=== PATIENT | male | born 1955 | race Caucasian/White ===

== ENCOUNTER 2017-12-29 11:31 | Emergency (ER) | payer OTHER ==
[~2017-12-29] VITALS: Ht 162.6 cm; Wt 60.8 kg
[~2017-12-29 11:31] MED LIST: ALBIPROI; ALBIPROI INH; ALBU90OI INH; ALBU90OI61 INH; AZIT250 PO; CYCL10 PO; CYCLOBENZAPRINE PO; Cyclobenzaprine5 MG PO; HYDACE5 PO; METPRE4DP PO; Monodox100 MG PO; Mucinex600 MG PO; NAPR550 PO; Naprosyn500 MG PO; PRED20 PO; Prednisone20 MG PO; TRAM50 PO; Ultram50 MG PO; Zithromax250 MG PO
[2017-12-29 13:07] LABS: BASOPHILS ABSOLUTE AUTO 0.04 K/mm3 (0.00-0.23); BASOPHILS PERCENT AUTO 1 % (0-2); EOSINOPHILS ABSOLUTE AUTO 0.03 K/mm3 (0.00-0.68); EOSINOPHILS PERCENT AUTO 0 % (0-6); Hematocrit 39.5 % (37.0-53.0); Hemoglobin 13.4 g/dL (13.5-17.5); IMMATURE GRAN ABSOLUTE AUTO 0.03 K/mm3 (0.00-0.10); IMMATURE GRAN PERCENT AUTO 0 % (0-1); LYMPHOCYTES ABSOLUTE AUTO 1.55 K/mm3 (0.84-5.20); LYMPHOCYTES PERCENT AUTO 18 % (21-46); MONOCYTES ABSOLUTE AUTO 1.12 K/mm3 (0.16-1.47); MONOCYTES PERCENT AUTO 13 % (4-13); Mean Corpuscular HGB 29.7 pg (26.0-34.0); Mean Corpuscular HGB Conc 33.9 g/dL (31.5-36.5); Mean Corpuscular Volume 88 fL (80-100); Mean Platelet Volume 8.8 fL (9.1-12.4); NEUTROPHILS ABSOLUTE AUTO 5.74 K/mm3 (1.96-9.15); NEUTROPHILS PERCENT AUTO 67 % (41-73); Platelet Count 391 K/mm3 (150-400); RDW Coefficient Variation 14.1 % (11.7-14.2); RDW Standard Deviation 45.3 fL (35.1-46.3); Red Blood Cell Count 4.51 M/mm3 (4.30-5.90); White Blood Cell Count 8.51 K/mm3 (4.00-11.30)
[2017-12-29 13:24] LABS: Alanine Aminotransfer (ALT/SGP 23 U/L (12-78); Albumin, Blood 3.8 g/dL (3.4-5.0); Alk Phos 56 U/L (50-136); Anion Gap 8 mmol/L (6-16); Aspartate Aminotrans (AST/SGOT 25 U/L (12-37); Bilirubin, Total 0.4 mg/dL (0.1-1.0); Blood Urea Nitrogen 8 mg/dL (8-24); CO2, Blood 26 mmol/L (21-32); Calcium, Blood 8.9 mg/dL (8.5-10.1); Chloride, Blood 95 mmol/L (98-108); Creatinine, Blood 0.62 mg/dL (0.60-1.20); Globulin, Blood 3.7 g/dL (2.2-4.0); Glomerular Filtration Rate >60 (60-); Glucose, Blood 103 mg/dL (70-99); Potassium, Blood 4.5 mmol/L (3.5-5.5); Sodium, Blood 129 mmol/L (136-145); Total Protein, Blood 7.5 g/dL (6.4-8.2); Troponin I <0.015 ng/mL (0.000-0.040)
[2017-12-29] MEDS ORDERED: Zofran Odt4 MG PO (17:56)
== END 2017-12-29 18:22 | disposition home or self-care (01) ==
LOC: ER 11:31
PROVIDERS: Emergency Medicine
DX: A08.4 Viral intestinal infection, unspecified (principal); J44.9 Chronic obstructive pulmonary disease, unspecified; Z79.51 Long term (current) use of inhaled steroids; Z87.891 Personal history of nicotine dependence
CPT/HCPCS: 36415; 71046; 80053; 83690; 84484; 85025; 93005; 93010; 99283

== ENCOUNTER 2018-05-02 10:08 | Emergency (ER) | payer OTHER ==
[~2018-05-02] VITALS: Ht 167.6 cm; Wt 65.3 kg
[~2018-05-02 10:08] MED LIST changes: +IBUP600 PO; +Zofran Odt4 MG PO
[2018-05-02] MEDS ORDERED: VALA500 PO (10:37)
[2018-05-02] MEDS ORDERED: Ultram50 MG PO (10:37)
== END 2018-05-02 10:40 | disposition home or self-care (01) ==
LOC: ER 10:08
DX: B02.9 Zoster without complications (principal); J44.9 Chronic obstructive pulmonary disease, unspecified; I10 Essential (primary) hypertension; Z79.51 Long term (current) use of inhaled steroids; Z87.891 Personal history of nicotine dependence
CPT/HCPCS: 99282

== ENCOUNTER → 2018-10-22 | Outpatient (CLI) | payer OTHER ==
[~2018-10-22] MED LIST changes: +VALA500 PO
== END | disposition home or self-care (01) ==
LOC: PLD 07:36 → LAB SHORT 07:36
DX: L60.2 Onychogryphosis (principal); B35.1 Tinea unguium
CPT/HCPCS: 88305; 88312

== ENCOUNTER 2018-11-15 06:00 | Day surgery (SDC) | payer OTHER ==
[~2018-11-15] VITALS: Ht 160 cm; Wt 61.0 kg
[~2018-11-15 06:00] MED LIST changes: +BUDE10.22 INH; +LISI20 PO; +NAPR500EC PO; +OMEPRAZOLE20 MG PO; +Singulair10 MG PO; +Vitamin D2000 UNIT PO; +Zanaflex4 M1 PO
--- NOTE | 2018-11-15 06:34 | NUR ---
History, Chart, Medications and Allergies reviewed before start of procedure. Patient States Post-Procedure ride home has been arranged. Patient confirms NPO status and agrees with scheduled surgery.
--- NOTE | 2018-11-15 09:42 | NUR ---
Patient up to Ambulate independently. Gait steady. Dressing to procedure site clean, dry, intact with no visible drainage, swelling, erythema or bruising noted. Patient States Post-Procedure ride home has been arranged. Discharged via wheelchair to private car for ride home.
== END 2018-11-15 09:38 | disposition home or self-care (01) ==
LOC: ORSCMMR 06:00 → ORD 07:30 → ORSCMMR 09:38
PROVIDERS: Surgery
PROC: 0YU60JZ Supplement Left Inguinal Region with Synthetic Substitute, Open Approach (ICD-10-PCS; principal; 2018-11-15 07:30)
DX: K40.90 Unilateral inguinal hernia, without obstruction or gangrene, not specified as recurrent (principal); I10 Essential (primary) hypertension; J44.9 Chronic obstructive pulmonary disease, unspecified; Z87.891 Personal history of nicotine dependence; Z79.899 Other long term (current) drug therapy
CPT/HCPCS: C1781; J0690; J1100; J2250; J2405; J2704; J3010; J7120

== ENCOUNTER → 2019-03-13 | Outpatient (CLI) | payer OTHER | END | disposition home or self-care (01) | LOC: LAB SHORT 07:31 → PLD 07:31 | DX: D48.5 Neoplasm of uncertain behavior of skin (principal) | CPT/HCPCS: 88305 ==

== ENCOUNTER → 2019-03-27 | Outpatient (CLI) | payer OTHER | END | disposition home or self-care (01) | LOC: LAB SHORT 08:50 → PLD 08:50 | DX: D22.5 Melanocytic nevi of trunk (principal) | CPT/HCPCS: 88305 ==

== ENCOUNTER → 2019-04-05 | Outpatient (CLI) | payer OTHER ==
[2019-04-05 16:06] LABS: Adenovirus F 40/41 Not Detected (NOT DETECT); Astrovirus Not Detected (NOT DETECT); Campylobacter Sp Not Detected (NOT DETECT); Cryptosporidium Not Detected (NOT DETECT); Cyclospora Cayetanensis Not Detected (NOT DETECT); E. Coli O157 Not Detected (NOT DETECT); Entamoeba Histolytica Not Detected (NOT DETECT); Enteroaggregative E. coli-EAEC Not Detected (NOT DETECT); Enteropathogenic E. coli-EPEC Detected (NOT DETECT); Enterotoxigenic E. coli-ETEC Not Detected (NOT DETECT); Giardia Lamblia Not Detected (NOT DETECT); Norovirus GI/GII Not Detected (NOT DETECT); Plesiomonas Shigelloides Not Detected (NOT DETECT); Salmonella Sp Not Detected (NOT DETECT); Shiga Toxin-prod E. coli-STEC Not Detected (NOT DETECT); Shigella/Enteroin E. coli-EIEC Not Detected (NOT DETECT); Vibrio Cholerae Not Detected (NOT DETECT); Vibrio Sp Not Detected (NOT DETECT); Yersinia Enterocolitica Not Detected (NOT DETECT)
[2019-04-05 16:07] LABS: Rotavirus A Not Detected (NOT DETECT); Sapovirus Not Detected (NOT DETECT)
== END | disposition home or self-care (01) ==
LOC: LAB EV 02:15
PROVIDERS: Internal Medicine Gastroenterology
DX: R19.7 Diarrhea, unspecified (principal)
CPT/HCPCS: 0097U

== ENCOUNTER 2019-10-02 07:51 | Day surgery (SDC) | payer OTHER ==
[~2019-10-02] VITALS: Ht 160 cm; Wt 60.7 kg
--- NOTE | 2019-10-02 19:49 | NUR ---
ARRIVAL REPORT RECEIVED FROM MARIE KNOX IN PACU. PT TRANSFERED TO UNIT AT APPROX 1935. PT TRANSFERED SELF TO BED WITH SBY ASSIST. REPORTS SOME SHORTNESS OF BREATH WITH TRANSFER PT REPORTS NORMAL WITH HX OF COPD. DRESSING ON POSTERIOR R SHOULDER CDI, TAPE WITH GAUZE UNDERNEATH. R ARMPIT DRESSING CDI CLEAR TAPE WITH GAUZE UNDERNEATH. REPORTS SOME PAIN WITH MOVEMENT IN RIGHT SHOULDER. PT CURRENTLY SITTING UP IN BED. ASKING FOR WATER AND FOOD CURRENTLY. ORIENTED TO ROOM WILL MAKE SURE NEEDS ARE MET. PT AAOX4
--- NOTE | 2019-10-03 04:20 | NUR ---
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 AA0X4, VSS. PT HERE FOR EXTENDED RECOVERY. PT VOIDING AND TOLERATING PO WELL. HAS DENIED PAIN SINCE RETURNING AND IS RESTING IN BED. PT IND IN ROOM. PLAN TO GO HOME TODAY
--- NOTE | 2019-10-03 08:53 | NUR ---
10/03/19 0853 Gail Ventura VERIFICATIONS: EDIT CHART.
[2019-10-03] MEDS ORDERED: HYDROCODONE-AC1 EAC1 PO (09:26)
--- NOTE | 2019-10-03 10:46 | NUR ---
DISCHARGE: PACKET PRINTED AND PT EDUCATED. PT GIVEN SCRIPT FOR NARCO AND GUAZE /TAPE FOR DRESSING CHANGE. LEFT UNIT VIA WHEELCHAIR AT ABOUT 1005 WITH VIPIN ARORA AND FRIEND.
== END 2019-10-03 10:19 | disposition home or self-care (01) ==
LOC: NM 07:51 → ORSCMMR 07:51 → NM 10:00 → SURS 19:46 → NM 10-03 10:19
PROVIDERS: Surgery
PROC: 0JB70ZZ Excision of Back Subcutaneous Tissue and Fascia, Open Approach (ICD-10-PCS; principal; 2019-10-02 12:30)
PROC: 07B50ZX Excision of Right Axillary Lymphatic, Open Approach, Diagnostic (ICD-10-PCS; principal; 2019-10-02 12:30)
PROC: 0JX70ZZ Transfer Back Subcutaneous Tissue and Fascia, Open Approach (ICD-10-PCS; principal; 2019-10-02 12:30)
DX: C43.59 Malignant melanoma of other part of trunk (principal); C77.3 Secondary and unspecified malignant neoplasm of axilla and upper limb lymph nodes; E78.00 Pure hypercholesterolemia, unspecified; J44.9 Chronic obstructive pulmonary disease, unspecified; I10 Essential (primary) hypertension; Z79.899 Other long term (current) drug therapy
CPT/HCPCS: 38792; 88305; 88307; 88342; A9520; J0690; J1100; J2405; J2704; J3010; J7120; Q9968

== ENCOUNTER → 2020-04-02 | Outpatient (CLI) | payer OTHER ==
[~2020-04-02] MED LIST changes: -BUDE10.22 INH; +Cetirizine HCl10 MG PO; +DEXA4 PO; +HYDROCODONE-AC1 EAC1 PO; +LEVE500 PO; +LEVETIRACETAM500 M3 PO; -LISI20 PO; +NAPR500 PO; -NAPR500EC PO; +OMEP20ER PO; +Prinivil10 MG PO; +SYMBICORT 80-10.2 GM INH
[2020-04-02 15:20] LABS: Performing Lab SYMBIODX; Test Name EMBEDDED TISSUE
== END ==
LOC: LAB SHORT 14:35 → LAB 14:35
PROVIDERS: Internal Medicine Hematology & Oncology
DX: C43.59 Malignant melanoma of other part of trunk (principal)
CPT/HCPCS: 81210

== ENCOUNTER 2020-04-09 13:55 | Inpatient (IN) | payer OTHER ==
[~2020-04-09] VITALS: Ht 162.6 cm; Wt 52.6 kg
[~2020-04-09 13:55] MED LIST changes: -Cetirizine HCl10 MG PO; -DEXA4 PO; -LEVETIRACETAM500 M3 PO; -NAPR500 PO; -OMEP20ER PO; -Prinivil10 MG PO; -SYMBICORT 80-10.2 GM INH; -Singulair10 MG PO
[2020-04-09 14:29] LABS: BASOPHILS ABSOLUTE AUTO 0.04 K/mm3 (0.00-0.23); BASOPHILS PERCENT AUTO 0 % (0-2); EOSINOPHILS ABSOLUTE AUTO 0.01 K/mm3 (0.00-0.68); EOSINOPHILS PERCENT AUTO 0 % (0-6); Hematocrit 46.1 % (37.0-53.0); Hemoglobin 15.3 g/dL (13.5-17.5); IMMATURE GRAN ABSOLUTE AUTO 0.12 K/mm3 (0.00-0.10); IMMATURE GRAN PERCENT AUTO 1 % (0-1); LYMPHOCYTES ABSOLUTE AUTO 1.53 K/mm3 (0.84-5.20); LYMPHOCYTES PERCENT AUTO 7 % (21-46); MONOCYTES ABSOLUTE AUTO 2.61 K/mm3 (0.16-1.47); MONOCYTES PERCENT AUTO 12 % (4-13); Mean Corpuscular HGB 30.2 pg (26.0-34.0); Mean Corpuscular HGB Conc 33.2 g/dL (31.5-36.5); Mean Corpuscular Volume 91 fL (80-100); Mean Platelet Volume 9.6 fL (9.1-12.4); NEUTROPHILS ABSOLUTE AUTO 16.98 K/mm3 (1.96-9.15); NEUTROPHILS PERCENT AUTO 80 % (41-73); Platelet Count 339 K/mm3 (150-400); RDW Coefficient Variation 14.2 % (11.7-14.2); RDW Standard Deviation 47.7 fL (35.1-46.3); Red Blood Cell Count 5.06 M/mm3 (4.30-5.90); White Blood Cell Count 21.29 K/mm3 (4.00-11.30)
[2020-04-09 14:48] LABS: Alanine Aminotransfer (ALT/SGP 17 U/L (12-78); Albumin, Blood 3.9 g/dL (3.4-5.0); Albumin/Globulin Ratio 0.9 (0.8-1.8); Alk Phos 77 U/L (50-136); Anion Gap 8 mmol/L (6-16); Aspartate Aminotrans (AST/SGOT 10 U/L (12-37); Bilirubin, Total 0.9 mg/dL (0.1-1.0); Blood Urea Nitrogen 28 mg/dL (8-24); Bun/Creatinine Ratio 31.7 (12.0-20.0); CO2, Blood 25 mmol/L (21-32); Calcium, Blood 9.6 mg/dL (8.5-10.1); Chloride, Blood 100 mmol/L (98-108); Creatinine, Blood 0.88 mg/dL (0.60-1.20); Globulin, Blood 4.5 g/dL (2.2-4.0); Glomerular Filtration Rate >60 (60-); Glucose, Blood 120 mg/dL (70-99); Potassium, Blood 4.4 mmol/L (3.5-5.5); Sodium, Blood 133 mmol/L (136-145); Total Protein, Blood 8.4 g/dL (6.4-8.2)
[2020-04-09] MEDS ORDERED: Cetirizine HCl10 MG PO (15:57)
[2020-04-09] MEDS ORDERED: DEXA4 PO (15:57)
[2020-04-09] MEDS ORDERED: NAPR500 PO (15:58)
[2020-04-09] MEDS ORDERED: Prinivil10 MG PO (15:58)
[2020-04-09] MEDS ORDERED: LEVETIRACETAM500 M3 PO (15:58)
[2020-04-09] MEDS ORDERED: Singulair10 MG PO (15:59)
[2020-04-09] MEDS ORDERED: OMEP20ER PO (15:59)
[2020-04-09] MEDS ORDERED: ALBU90OI INH (16:00)
[2020-04-09] MEDS ORDERED: SYMBICORT 80-10.2 GM INH (16:01)
[2020-04-09 20:30] LABS: Hematocrit 43.9 % (37.0-53.0); Hemoglobin 14.9 g/dL (13.5-17.5)
[2020-04-09 20:48] LABS: International Normalized Ratio 1.07; Prothrombin Time Results 11.4 Sec (9.7-11.5)
--- NOTE | 2020-04-09 20:57 | NUR ---
2049 PT ADMITTED TO ROOM 309 PER WHEELCHAIR FROM ER; REPORT RECEIVED FROM MARIE SANTIAGO, DENIES PAIN OR NAUSEA; PTS BILATERAL FEET NOTED TO HAVE LONG TOE NAILS NOTED; ALERT AND ORIENTED X 4.
[2020-04-10 02:00] LABS: Hematocrit 43.8 % (37.0-53.0); Hemoglobin 14.8 g/dL (13.5-17.5)
--- NOTE | 2020-04-10 05:23 | NUR ---
SHIFT SUMMARY: 64 Y/O SLENDER MALE RESTED COMFORTABLY ALL SHIFT; NO BLOODY STOOLS; HG 14.8 AT 0140; DENIES PAIN OR NAUSEA; ALERT AND ORIENTED X 4; CIWA 1; BED LOW POSITION WITH CALL LIGHT AT SIDE; NPO.
[2020-04-10 07:58] LABS: BASOPHILS ABSOLUTE AUTO 0.04 K/mm3 (0.00-0.23); BASOPHILS PERCENT AUTO 0 % (0-2); EOSINOPHILS ABSOLUTE AUTO 0.03 K/mm3 (0.00-0.68); EOSINOPHILS PERCENT AUTO 0 % (0-6); Hematocrit 43.3 % (37.0-53.0); Hemoglobin 14.3 g/dL (13.5-17.5); IMMATURE GRAN ABSOLUTE AUTO 0.16 K/mm3 (0.00-0.10); IMMATURE GRAN PERCENT AUTO 1 % (0-1); LYMPHOCYTES ABSOLUTE AUTO 1.72 K/mm3 (0.84-5.20); LYMPHOCYTES PERCENT AUTO 7 % (21-46); MONOCYTES ABSOLUTE AUTO 2.27 K/mm3 (0.16-1.47); MONOCYTES PERCENT AUTO 10 % (4-13); Mean Corpuscular HGB 30.4 pg (26.0-34.0); Mean Corpuscular Volume 92 fL (80-100); NEUTROPHILS ABSOLUTE AUTO 19.08 K/mm3 (1.96-9.15); NEUTROPHILS PERCENT AUTO 82 % (41-73); Platelet Count 318 K/mm3 (150-400); RDW Coefficient Variation 13.9 % (11.7-14.2); RDW Standard Deviation 47.4 fL (35.1-46.3)
[2020-04-10 08:17] LABS: Alanine Aminotransfer (ALT/SGP 12 U/L (12-78); Albumin, Blood 3.2 g/dL (3.4-5.0); Albumin/Globulin Ratio 0.8 (0.8-1.8); Alk Phos 67 U/L (50-136); Anion Gap 7 mmol/L (6-16); Aspartate Aminotrans (AST/SGOT 11 U/L (12-37); Blood Urea Nitrogen 23 mg/dL (8-24); Bun/Creatinine Ratio 32.6 (12.0-20.0); CO2, Blood 25 mmol/L (21-32); Chloride, Blood 101 mmol/L (98-108); Creatinine, Blood 0.71 mg/dL (0.60-1.20); Globulin, Blood 4.1 g/dL (2.2-4.0); Glomerular Filtration Rate >60 (60-); Glucose, Blood 112 mg/dL (70-99); Potassium, Blood 4.4 mmol/L (3.5-5.5); Sodium, Blood 133 mmol/L (136-145); Total Protein, Blood 7.3 g/dL (6.4-8.2)
[2020-04-10 11:24] LABS: Campylobacter Sp Not Detected (NOT DETECT); E. Coli O157 Detected (NOT DETECT); Enteroaggregative E. coli-EAEC Not Detected (NOT DETECT); Enteropathogenic E. coli-EPEC Not Detected (NOT DETECT); Enterotoxigenic E. coli-ETEC Not Detected (NOT DETECT); Plesiomonas Shigelloides Not Detected (NOT DETECT); Salmonella Sp Not Detected (NOT DETECT); Shiga Toxin-prod E. coli-STEC Detected (NOT DETECT); Shigella/Enteroin E. coli-EIEC Not Detected (NOT DETECT); Vibrio Cholerae Not Detected (NOT DETECT); Vibrio Sp Not Detected (NOT DETECT); Yersinia Enterocolitica Not Detected (NOT DETECT)
[2020-04-10 11:25] LABS: Adenovirus F 40/41 Not Detected (NOT DETECT); Astrovirus Not Detected (NOT DETECT); Cryptosporidium Not Detected (NOT DETECT); Cyclospora Cayetanensis Not Detected (NOT DETECT); Entamoeba Histolytica Not Detected (NOT DETECT); Giardia Lamblia Not Detected (NOT DETECT); Norovirus GI/GII Not Detected (NOT DETECT); Rotavirus A Not Detected (NOT DETECT); Sapovirus Not Detected (NOT DETECT)
[2020-04-10 13:51] LABS: Hematocrit 44.5 % (37.0-53.0)
[2020-04-10 15:03] LABS: Stool Occult Bld Immuno 1 Positive (NEGATIVE)
--- NOTE | 2020-04-10 16:56 | NUR ---
PT IS A/OX4, PLEASANT AND COOPERATIVE, THE PT IS UP WITH MINIMAL ASSIST TO THE BATHROOM, THE PT TODAY HAD MUTIPLE LOOSE STOOLS BROWN IN COLOR, NO BLACK TARRY STOOLS OR ERA BLOOD NOTICED, PT WAS MEDICATED FOR ABD PAIN X1 SO FAR THIS SHIFT, THE PT APPEARS TO BE BREATHING EASILY AT THIS TIME, THE PT STARTED ON CLEARS THEN B.R.A.T.DIET FOR FOR DINNER AND HAS TOLERATED THE CLEARS SO FAR, FAMILY HAS BEEN IN TO SEE THE PT, CALL LIGHT IN REACH WILL CONTINUE TO MONITOR AND ASSESS FOR CHANGES
--- NOTE | 2020-04-10 22:25 | NUR ---
PT RESTING COMFORTABLY IN BED; AWAITING BED AT [facility] AT THIS TIME.
--- NOTE | 2020-04-11 04:00 | NUR ---
SHIFT SUMMARY: 64 Y/O SLENDER MALE RESTED COMFORTABLY ALL SHIFT; NO BLOODY STOOLS NOTED; PT WAITING ON BED YET FROM [facility]; DENIES PAIN OR NAUSEA; ALERT AND ORIENTED X 4; BED LOW POSITION WITH CALL LIGHT AT SIDE.
[2020-04-11 04:50] LABS: Hematocrit 39.2 % (37.0-53.0); Mean Corpuscular HGB 30.6 pg (26.0-34.0); Mean Corpuscular HGB Conc 33.2 g/dL (31.5-36.5); Mean Corpuscular Volume 92 fL (80-100); Mean Platelet Volume 10.6 fL (9.1-12.4); Platelet Count 295 K/mm3 (150-400); RDW Coefficient Variation 13.9 % (11.7-14.2); RDW Standard Deviation 47.2 fL (35.1-46.3); Red Blood Cell Count 4.25 M/mm3 (4.30-5.90); White Blood Cell Count 20.76 K/mm3 (4.00-11.30)
[2020-04-11 05:10] LABS: Albumin, Blood 2.8 g/dL (3.4-5.0); Anion Gap 6 mmol/L (6-16); Blood Urea Nitrogen 16 mg/dL (8-24); Bun/Creatinine Ratio 19.8 (12.0-20.0); CO2, Blood 25 mmol/L (21-32); Calcium, Blood 8.8 mg/dL (8.5-10.1); Chloride, Blood 101 mmol/L (98-108); Creatinine, Blood 0.81 mg/dL (0.60-1.20); Glomerular Filtration Rate >60 (60-); Glucose, Blood 105 mg/dL (70-99); Phosphorus, Blood 3.8 mg/dL (2.5-4.9); Sodium, Blood 132 mmol/L (136-145)
--- NOTE | 2020-04-11 11:51 | NUR ---
CALLED REPORT TO SMITA SALAZAR [facility] 1890.
--- NOTE | 2020-04-11 12:59 | NUR ---
PT OUT DOOR WITH BIN LARES AT 1300
--- NOTE | 2020-04-11 13:00 | NUR ---
TELE REMOVED. IV INTACT.
== END 2020-04-11 13:00 | disposition short-term general hospital (02) | DRG 871 ==
LOC: ER 13:55 → MEDS 20:24 → ENPENDDIS 04-11 09:12 → MEDS 04-11 13:00
PROVIDERS: Emergency Medicine; ADMIT Internal Medicine
DX: A41.51 Sepsis due to Escherichia coli [E. coli] (principal); G93.6 Cerebral edema; E87.1 Hypo-osmolality and hyponatremia; C79.31 Secondary malignant neoplasm of brain; E86.0 Dehydration; J44.9 Chronic obstructive pulmonary disease, unspecified; I10 Essential (primary) hypertension; B96.21 Shiga toxin-producing Escherichia coli [E. coli] [STEC] O157 as the cause of diseases classified elsewhere; Z87.891 Personal history of nicotine dependence; E78.00 Pure hypercholesterolemia, unspecified; G89.4 Chronic pain syndrome
CPT/HCPCS: 0097U; 36415; 74177; 80053; 80069; 82274; 83605; 85014; 85018; 85025; 85027; 85610; 85730; 86850; 86900; 86901; 93005; 93010; 94640; 94760; 96365; 96367; 97161; 97165; 99285-25; A9270-GY; J0744; J2543; J3010; J7030; Q9967; U0002

== ENCOUNTER 2020-09-15 20:20 | Emergency (ER) | payer OTHER ==
[~2020-09-15] VITALS: Ht 167.6 cm; Wt 77.1 kg
[~2020-09-15 20:20] MED LIST changes: +Cetirizine HCl10 MG PO; +DEXA4 PO; +LEVETIRACETAM500 M3 PO; +NAPR500 PO; +OMEP20ER PO; +Prinivil10 MG PO; +SYMBICORT 80-10.2 GM INH; +Singulair10 MG PO
[2020-09-15] MEDS ORDERED: ACET325 PO (20:41)
[2020-09-15] MEDS ORDERED: FLUTICASONE-SA1 EA10 INH (20:44)
[2020-09-15] MEDS ORDERED: FOLI1 PO (20:45)
[2020-09-15] MEDS ORDERED: MIRALAX17 GM PO (20:49)
[2020-09-15] MEDS ORDERED: TAMS.4ER PO (20:50)
[2020-09-15] MEDS ORDERED: SENNA LAXATIVE8.6 MG (20:50)
[2020-09-15] MEDS ORDERED: SYMBICORT 80-10.2 GM (20:50)
[2020-09-15] MEDS ORDERED: TRAM50 PO (20:51)
[2020-09-15] MEDS ORDERED: THERA-D2000 UNIT PO (20:52)
[2020-09-15 22:17] LABS: BASOPHILS ABSOLUTE AUTO 0.12 K/mm3 (0.00-0.23); BASOPHILS PERCENT AUTO 1 % (0-2); EOSINOPHILS ABSOLUTE AUTO 0.01 K/mm3 (0.00-0.68); EOSINOPHILS PERCENT AUTO 0 % (0-6); Hematocrit 41.5 % (37.0-53.0); Hemoglobin 13.5 g/dL (13.5-17.5); IMMATURE GRAN ABSOLUTE AUTO 0.18 K/mm3 (0.00-0.10); IMMATURE GRAN PERCENT AUTO 2 % (0-1); LYMPHOCYTES ABSOLUTE AUTO 2.97 K/mm3 (0.84-5.20); LYMPHOCYTES PERCENT AUTO 30 % (21-46); MONOCYTES ABSOLUTE AUTO 1.25 K/mm3 (0.16-1.47); MONOCYTES PERCENT AUTO 13 % (4-13); Mean Corpuscular HGB Conc 32.5 g/dL (31.5-36.5); Mean Corpuscular Volume 89 fL (80-100); Mean Platelet Volume 10.5 fL (9.1-12.4); NEUTROPHILS ABSOLUTE AUTO 5.49 K/mm3 (1.96-9.15); NEUTROPHILS PERCENT AUTO 55 % (41-73); Platelet Count 255 K/mm3 (150-400); RDW Coefficient Variation 16.8 % (11.7-14.2); RDW Standard Deviation 54.5 fL (35.1-46.3); Red Blood Cell Count 4.65 M/mm3 (4.30-5.90); White Blood Cell Count 10.02 K/mm3 (4.00-11.30)
[2020-09-15 22:27] LABS: Alanine Aminotransfer (ALT/SGP 22 U/L (12-78); Albumin, Blood 3.4 g/dL (3.4-5.0); Albumin/Globulin Ratio 0.7 (0.8-1.8); Alk Phos 156 U/L (50-136); Anion Gap 10 mmol/L (6-16); Aspartate Aminotrans (AST/SGOT 23 U/L (12-37); Bilirubin, Total 0.8 mg/dL (0.1-1.0); Blood Urea Nitrogen 16 mg/dL (8-24); Bun/Creatinine Ratio 22.7 (12.0-20.0); CO2, Blood 20 mmol/L (21-32); Calcium, Blood 9.3 mg/dL (8.5-10.1); Chloride, Blood 104 mmol/L (98-108); Globulin, Blood 4.7 g/dL (2.2-4.0); Glomerular Filtration Rate >60 (60-); Glucose, Blood 93 mg/dL (70-99); Magnesium, Blood 1.9 mg/dL (1.6-2.4); Potassium, Blood 4.3 mmol/L (3.5-5.5); Sodium, Blood 134 mmol/L (136-145); Total Protein, Blood 8.1 g/dL (6.4-8.2)
[2020-09-15 22:34] LABS: U Amphetamine Screen Not Detected; U Barbituate Screen Not Detected; U Benzodiazapine Screen Not Detected; U Buprenorphine Screen Not Detected; U Cannabinoids Screen DETECTED; U Cocaine Screen Not Detected; U Methadone Screen Not Detected; U Methamphetamine Screen Not Detected; U Opiates Screen Not Detected; U Oxycodone Screen Not Detected; U Phencyclidine Screen Not Detected; U Propoxyphene Screen Not Detected
[2020-09-15] MEDS ORDERED: DECADRON4 M2 PO (23:42)
== END 2020-09-16 00:13 | disposition home or self-care (01) ==
LOC: ER 20:20
PROVIDERS: Emergency Medicine
DX: C79.31 Secondary malignant neoplasm of brain (principal); C80.1 Malignant (primary) neoplasm, unspecified; R56.9 Unspecified convulsions; J44.9 Chronic obstructive pulmonary disease, unspecified; Z79.51 Long term (current) use of inhaled steroids; Z79.899 Other long term (current) drug therapy; Z87.891 Personal history of nicotine dependence
CPT/HCPCS: 70450; 80053; 83735; 85025; 93005; 93010; 96374; 99284-25; A9270; J1100; J1953

== ENCOUNTER 2020-10-04 20:32 | Inpatient (IN) | payer OTHER ==
[~2020-10-04] VITALS: Ht 165.1 cm; Wt 60.7 kg
[~2020-10-04 20:32] MED LIST changes: +ACET325 PO; +DECADRON4 M2 PO; +FLUTICASONE-SA1 EA10 INH; +FOLI1 PO; +MIRALAX17 GM PO; +SENNA LAXATIVE8.6 MG; +SYMBICORT 80-10.2 GM; +TAMS.4ER PO; +THERA-D2000 UNIT PO
[2020-10-04] MEDS ORDERED: LEVE500 PO (21:17)
[2020-10-05] MEDS ORDERED: Norco 5-325 Ta1 EACH PO (00:49)
[2020-10-05] MEDS ORDERED: MORP20L PO (16:08)
[2020-10-05] MEDS ORDERED: LORA.5 PO (16:09)
== END 2020-10-05 19:00 | disposition hospice, home (50) | DRG 177 ==
LOC: ER 20:32 → ICUW 22:13 → ICUE 10-05 00:14 → ICUW 10-05 00:14 → ER 10-05 00:14 → ICUE 10-05 00:15 → ICUW 10-05 00:15 → ICUE 10-05 07:43
PROVIDERS: ADMIT Hospitalist
DX: J69.0 Pneumonitis due to inhalation of food and vomit (principal); J96.21 Acute and chronic respiratory failure with hypoxia; C71.9 Malignant neoplasm of brain, unspecified; I10 Essential (primary) hypertension; J44.9 Chronic obstructive pulmonary disease, unspecified; G40.909 Epilepsy, unspecified, not intractable, without status epilepticus; Z66 Do not resuscitate; K21.9 Gastro-esophageal reflux disease without esophagitis; Z87.891 Personal history of nicotine dependence; Z79.51 Long term (current) use of inhaled steroids; Z79.899 Other long term (current) drug therapy
CPT/HCPCS: 31720; 71045; 96365-59; 96367-59; 96375-59; 99285-25; A9270; J1100; J1630; J1953; J2060; J2405; J2543; J3010